=== PATIENT | male | born 1940 | race Caucasian/White ===

== ENCOUNTER 2017-06-05 11:51 | Inpatient (IN) ==
[2017-06-03 16:48] LABS: Appearance,Urine CLEAR; Bacteria,Urine 0 /hpf (0); Bilirubin,Urine NEG (NEG); Color,Urine YELLOW; Glucose,Urine (UA) 50 mg/dL (NEG); Leukocyte Esterase,Urine NEG /uL (NEG); Nitrate,Urine NEG (NEG); Protein,Urine 100 mg/dL (NEG); Specific Gravity,Urine 1.024 (1.000-1.035); Urine Blood NEG mg/dL (<0.03); Urine RBC < 1 /hpf (0-1); Urine Squamous Epithelial Cell 0 /hpf (0-4); Urine WBC 1 /hpf (0-4); Urobilinogen,Urine NEG (NEG)
[2017-06-03 18:45] LABS: Blood Urea Nitrogen 21 mg/dl (8-23)
[2017-06-03 19:20] LABS: Basophils # (Auto) 0.1 K/mcL (0.0-0.3); Basophils % (Auto) 0.7 % (0.0-2.0); Eosinophils # (Auto) 0.3 K/mcL (0.0-0.7); Eosinophils % (Auto) 4.4 % (0.0-7.0); Granulocytes % (Auto) 59.1 % (38.0-78.0); Lymphocytes # (Auto) 1.9 K/mcL (1.5-4.8); Lymphocytes % (Auto) 25.3 % (15.5-49.0); Mean Cell Volume 96.5 fL (80.0-100.0); Mean Corpuscular HGB Conc 32.5 g/dL (31.0-36.0); Mean Corpuscular Hemoglobin 31.4 pg (26.0-34.0); Monocytes # (Auto) 0.8 K/mcL (0.1-0.9); Monocytes % (Auto) 10.5 % (1.0-12.0); Platelet Count 182 K/mcL (140-440); RBC 4.41 M/mcL (4.50-5.90); Red Cell Distribution Width 14.4 % (11.5-14.5)
[~2017-06-05 11:51] MED LIST: CELECOXIB 200 MG CAPSULE PO SCH; IPRATROPIUM/ALBUTEROL 3 ML AMPUL.NEB NEB PRN; KETOROLAC 30 MG, ROPIVACAINE HCL/PF 49.5 ML, EPINEPHrine 0.5 MG, 0.9 % SODIUM CHLORIDE ... IJ ONE; PREGABALIN 75 MG CAPSULE PO SCH; SCOPOLAMINE 1 PATCH PATCH TOPICAL PRN; ceFAZolin 1 GM VIAL IV SCH; oxyCODONE 10 MG TAB.ER.12H PO SCH
[2017-06-05] MEDS ORDERED: KETAMINE 100 MG/ML ML IV ONE (14:05)
[2017-06-05] MEDS ORDERED: ETOMIDATE 20 MG/10 ML VIAL IV ONE (14:05)
[2017-06-05] MEDS ORDERED: PHENYLEPHRINE 10 MG/ML VIAL IV ONE (14:05)
[2017-06-05] MEDS ORDERED: GLYCOPYRROLATE 0.2 MG/ML VIAL IV ONE (14:05)
[2017-06-05] MEDS ORDERED: LIDOCAINE HCL/PF 100 MG/5 ML SYRINGE IV ONE (14:05)
[2017-06-05] MEDS ORDERED: BUPIVACAINE PF 0.5% 30 ML VIAL IJ ONE (14:05)
[2017-06-05] MEDS ORDERED: EPINEPHrine 1 MG/ML AMPUL IJ ONE (14:05)
[2017-06-05] MEDS ORDERED: ONDANSETRON 4 MG/2 ML VIAL IV ONE (14:05)
[2017-06-05] MEDS ORDERED: TRANEXAMIC ACID 1,000 MG/10 ML VIAL IV ONE (14:05)
[2017-06-05] MEDS ORDERED: MEPERIDINE 25 MG/ML SYRINGE IV PRN (15:20)
[2017-06-05] MEDS ORDERED: IPRATROPIUM/ALBUTEROL 3 ML AMPUL.NEB NEB PRN (15:20)
[2017-06-05] MEDS ORDERED: ONDANSETRON 4 MG/2 ML VIAL IV PRN ×2 (15:20→15:52)
[2017-06-05] MEDS ORDERED: METHOCARBAMOL 1,000 MG/10 ML VIAL IV PRN (15:20)
[2017-06-05] MEDS ORDERED: LACTATED RINGERS 1,000 ML IV SCH (15:30)
[2017-06-05] MEDS ORDERED: MAGNESIUM HYDROXIDE 30 ML ORAL.SUSP PO PRN (15:52)
[2017-06-05] MEDS ORDERED: BISACODYL 10 MG SUPP.RECT PR PRN (15:52)
[2017-06-05] MEDS ORDERED: BENZOCAINE/MENTHOL 1 LOZENGE PO PRN (15:52)
[2017-06-05] MEDS ORDERED: POLYETHYLENE GLYCOL 3350 17 GM PACKET PO PRN (15:52)
[2017-06-05] MEDS ORDERED: TRANEXAMIC ACID 1,000 MG/10 ML VIAL IV SCH (15:52)
[2017-06-05] MEDS ORDERED: FLEETS ADULT ENEMA PR PRN (15:52)
--- NOTE | 2017-06-05 15:52 | Brief Operative Note ---
Date of procedure: 06/05/17 Pre-op diagnosis: R knee DJD Post-op diagnosis: same Procedure: Right robotic assisted total knee arthroplasty Grafts/Implants: Yes ([place] Triathlon 6 femur, 5 tibia, 9mm X3 tibial insert, 36 patella) Anesthesia: spinal, GLMA Findings: multicompartment arthritis Complications: none Surgeon: Roque Lee Emergency Manager: Silviano Escobedo Estimated blood loss (cc): 30 Specimens Removed/Pathology: none sent Condition: stable Disposition: PACU
[2017-06-05] MEDS ORDERED: DEXTROSE 31 GM ORAL.SUSP PO PRN (15:58)
[2017-06-05] MEDS ORDERED: DEXTROSE 50% 50 ML VIAL IV PRN (15:58)
--- NOTE | 2017-06-05 17:07 | XRay Report ---
CLINICAL INFORMATION: Post-op total knee. COMPARISON: None. FINDINGS: Total knee prostheses is anatomically aligned. No osseous abnormality. Soft tissue swelling is noted. IMPRESSION: Negative Interpreted and Authenticated by: Thomas Silva 06/05/17
[2017-06-05] MEDS: 0.9 % SODIUM CHLORIDE 1,000 ML IV SCH (17:23)
[2017-06-05] MEDS: INSULIN LISPRO 1 UNIT/0.01 ML UNIT SQ SCH ×2 (17:23→21:45)
[2017-06-05] MEDS: metFORMIN 500 MG TABLET PO SCH (17:23)
[2017-06-05] MEDS: INSULIN, 75/25 NPL/LISPRO 1 UNIT/0.01 ML UNIT SQ SCH (17:50)
[2017-06-05] MEDS ORDERED: ATORVASTATIN 20 MG TABLET PO SCH (21:00)
[2017-06-05] MEDS ORDERED: amLODIPine 5 MG TABLET PO SCH (21:00)
[2017-06-05] MEDS ORDERED: SENNOSIDES 1 TABLET PO SCH (21:00)
[2017-06-05] MEDS: DOCUSATE SODIUM 100 MG CAPSULE PO SCH (21:45)
[2017-06-05] MEDS: LISINOPRIL 20 MG TABLET PO SCH (21:45)
[2017-06-05] MEDS: METOPROLOL TARTRATE 25 MG TABLET PO SCH (21:45)
[2017-06-05] MEDS: ASPIRIN 325 MG ENTERIC COATED TABLET PO SCH (21:45)
[2017-06-05] MEDS: ceFAZolin 1 GM VIAL IV SCH (21:46)
[2017-06-05] MEDS: [UNRECOGNIZED DRUG - OTHER] PO SCH (21:46)
[2017-06-05] MEDS: 0.9 % SODIUM CHLORIDE 10 ML SYRINGE IV SCH (21:49)
[2017-06-06] MEDS: 0.9 % SODIUM CHLORIDE 1,000 ML IV SCH (01:09)
[2017-06-06] MEDS: ceFAZolin 1 GM VIAL IV SCH (04:57)
[2017-06-06] MEDS: 0.9 % SODIUM CHLORIDE 10 ML SYRINGE IV SCH (05:17)
[2017-06-06] MEDS: oxyCODONE/APAP 5/325MG TABLET PO PRN ×2 (05:53→06:53)
[2017-06-06] MEDS: INSULIN LISPRO 1 UNIT/0.01 ML UNIT SQ SCH (07:33)
[2017-06-06] MEDS: INSULIN, 75/25 NPL/LISPRO 1 UNIT/0.01 ML UNIT SQ SCH (07:34)
--- NOTE | 2017-06-06 07:49 | Discharge Summary ---
Providers - Providers Patient information: Note initiated : 06/06/17 at 7:47 am Service Date, if different from initiated Date: [] Patient: Barrett Campos 77 y/o M admitted on 06/05/17 for Arthroplasty, Knee Total Right John. Chief Complaint: [] Discharge date: 06/06/17 Hospitalization Hospital course: Pt was admitted for a TKA. He underwent the procedure the day of admission. He was then transfered to the floor for IV pain meds, IV abx, and PT. He spent one night on the floor prior to being discharged to home. Discharge diagnosis: R knee osteoarthrosis Exam - Exam Clean and dry: Yes Weight bearing status: as tolerated Ortho Discharge - TKA - Patient Instructions Diet: Regular Diet Activity: activity as tolerated Total Knee Protocol: For Total Knee: Start ROM PRABHA with stationary bike or rocking chair. Work on gaining full extension of knee. Posterior dislocation precautions provided. Hip abductor strengthening and gait training instructions provided. Apply Cryocuff as instructed. Dressing Care: May shower in 2 days - Follow Up Plan Disposition: Home, Self-Care Prognosis: Good Rehab Potential: Good Overall status at discharge: patient is progressing back to baseline - Orders For Discharge Prescriptions: Aspirin [Ecotrin] 325 mg PO BID #30 tab.ec oxyCODONE/APAP [Percocet 5-325 mg] 1 - 2 tab PO Q4HP PRN #80 tab PRN Reason: Pain Pending Studies Resuscitation Status Full Code Diet Consistent Carbohydrate Diet Start SatJun 05 Dinner Amlodipine Besylate (Norvasc) 5 mg PO HS [facility] Last Admin: 06/05/17 21:45 Dose: 5 mg Aspirin (Ecotrin) 325 mg PO BID [facility] Last Admin: 06/05/17 21:45 Dose: 325 mg Atorvastatin Calcium (Lipitor) 20 mg PO HS [facility] Last Admin: 06/05/17 21:45 Dose: 20 mg Diagnostic Test (Pha) (Accu-Chek) 1 each FS ACHS [facility] Last Admin: 06/06/17 07:33 Dose: 1 each Admin: 06/05/17 21:44 Dose: 1 each Admin: 06/05/17 17:06 Dose: 1 each Docusate Sodium (Colace) 100 mg PO BID [facility] Last Admin: 06/05/17 21:45 Dose: 100 mg Sodium Chloride (Sodium Chloride 0.9%) 1,000 mls @ 125 mls/hr IV .Q8H [facility] Last Admin: 06/06/17 01:09 Dose: 125 mls/hr Infusion: 06/06/17 01:09 Dose: 0 mls/hr Admin: 06/05/17 17:23 Dose: 125 mls/hr Insulin Human Lispro (Humalog) 0 unit SQ ACHS [facility] PRN Reason: Protocol Last Admin: 06/06/17 07:33 Dose: 2 unit Admin: 06/05/17 21:45 Dose: 2 unit Admin: 06/05/17 17:23 Dose: 4 unit Insulin Lispro Protam/Lispro Human (Humalog 75/25) 65 unit SQ BIDAC [facility] Last Admin: 06/06/17 07:34 Dose: 65 unit Admin: 06/05/17 17:50 Dose: 65 unit Lisinopril (Zestril) 20 mg PO BID [facility] Last Admin: 06/05/17 21:45 Dose: 20 mg Metformin HCl (Glucophage) 500 mg PO BIDCC [facility] Last Admin: 06/05/17 17:23 Dose: 500 mg Metoprolol Tartrate (Lopressor) 25 mg PO BID [facility] Last Admin: 06/05/17 21:45 Dose: 25 mg Oxycodone/Acetaminophen (Percocet 5-325 Mg) 0 tab PO Q4HP PRN PRN Reason: PAIN LEVEL 3-6 Last Admin: 06/06/17 06:53 Dose: 1 tab Admin: 06/06/17 05:53 Dose: 1 tab Colostrum, Bovine [ (Colostrum] 500 Mg) 1 dose PO BID [facility] Last Admin: 06/05/17 21:46 Dose: Not Given Senna (Senokot) 2 tab PO HS [facility] Last Admin: 06/05/17 21:45 Dose: 2 tab Sodium Chloride (Saline Flush) 10 ml IV Q8 [facility] Last Admin: 06/06/17 05:17 Dose: Not Given Admin: 06/05/17 21:49 Dose: Not Given Shift Summary 06/06/17 03:47 Shift Summary by Mónica Medina Patient is doing well. Dressing to right knee has some shadow drainage on the ALEXIS, it as not gotten any bigger so far. Up with SBA and FWW. Ambulated to nurses station and back to room. Alert and oriented. Has not required any pain meds so far, will try to get him some before shift change so its on board for PT. IV to Left hand infusing NS at 125mls/hr. Voiding per urinal but output is sluggish. Last bladder scan a little after 0200 was for 175-200. He voided 175 earlier in the shift with a PVR of 15-25mls. AV boots on. Initialized on 06/06/17 03:47 - END OF NOTE
[2017-06-06] MEDS ORDERED: POTASSIUM CHLORIDE 10 MEQ TABLET PO SCH (08:00)
--- NOTE | 2017-06-06 08:14 | Operative Note ---
DATE OF OPERATION: 06/05/2017 PREOPERATIVE DIAGNOSIS: Right knee severe multi-compartment osteoarthritis. POSTOPERATIVE DIAGNOSIS: Right knee severe multi-compartment osteoarthritis. PROCEDURE PERFORMED: Right robotic-assisted total knee arthroplasty placing a Yessenia triathlon size 6 cruciate retaining femoral component, a size 5 tibial baseplate with a 9 mm X3 tibial insert and a 36 mm patellar button. SURGEON: Roque Lee MD. CHIEF ACCOUNTING OFFICER: Brayan Escobedo PA-C. ANESTHESIA: Spinal plus general. DRAINS: None. SPECIMENS: Bone cuts, which were discarded. BLOOD LOSS: 30 mL POSTOPERATIVE CONDITION: Stable. INDICATIONS FOR SURGERY: This is a 77-year-old male who has had longstanding worsening right knee pain. Radiographs showed severe [id number]-vo-[id number] osteoarthritis. He has had a prior left total knee arthroplasty by me with a good result. FINDINGS AT SURGERY: He did have multiple compartment osteoarthritis. Post implantation showed good limb alignment and stability. PROCEDURE IN DETAIL: The patient had been seen preoperatively and informed consent had been obtained after discussion of risks and benefits of surgery. Risks including, but not limited to, bleeding, possibly requiring transfusion; infection, possibly requiring implant removal and prolonged IV antibiotics; injury to nerves, blood vessels, and other surrounding structures; anesthetic risks; incomplete or no resolution of symptoms; stiffness, pain and swelling, clunking; DVT and pulmonary embolus risks; the possibility of needing further revision surgery. He understood these risks and wished to proceed. Correct operative site was marked and the patient was given spinal anesthesia and was taken to the operating room and LMA general given. The right lower extremity was carefully prepped and draped in normal sterile fashion and a time-out was performed verifying patient name, operative site, and plan. Esmarch was used, securing it the extremity and tourniquet was inflated to 350 mmHg. A midline incision was made with a scalpel through skin and subcutaneous tissue. IrriSept was irrigated and then a medial parapatellar arthrotomy made. Subperiosteal exposure was done of the anterior medial tibia and we then transected the ACL and resected the anterior horns of menisci. Retropatellar fat pad was also excised and then the distal anterior cortex of the femur was exposed subperiosteally. The guide pins were then placed, two in the femur and two in the tibia first making stab incisions and then drilling the pins bicortically and attaching the arrays. We also placed femoral and tibial checkpoints. We went ahead and checked our hip center of rotation as well as medial and lateral malleoli with the Green probe. We did our double check of our femoral and tibial check points. We then used the blue probe to do our mapping of the femur and tibia. We then removed osteophytes with a rongeur. We then checked our gaps with the spoons in flexion and extension. In flexion, we were tight medially and in extension we were tight laterally. We did not feel we should internally rotate the tibia. We went ahead and just placed 4 degrees of varus on the femur to give us 17 mm gaps medially in flexion and extension and laterally in extension, and we had 15 mm laterally in flexion. We went ahead and placed this into the computer and then went ahead and used the robotic arm to do our femoral and tibial bone cuts. We used the green probe to johan our tibial rotation. We trialed placed a 6 trial; however, this had overhang posterolaterally with the appropriate rotation so we downsized to a 5. This was pinned into place. Boss reamer and keel punch were used to prepare and then the keeled tibial trial was impacted. Femur was elevated and a curved osteotome used along with curved curet to remove posterior osteophytes. Femoral component was impacted, pinned and peg holes drilled. We then impacted a 9 trial insert. The knee was taken into extension. We were about 4 degrees short of full extension. We then measured the patella. It measured approximately 25 mm thick. We did a freehand resection. Post-resection was 13 mm thick. We went ahead and sized to a 36 which was medialized maximally and drilled our peg holes. We then placed the patella trial and did a lateral facetectomy. We also checked our thickness and post-resection was 23. We then checked our patellar tracking and it tracked well, so we went ahead and removed trial components while definitive implants were opened. We filled the joint with IrriSept. After a minute we pulse lavaged copiously with saline. Antibiotic cement was mixed. We used a CO2 gun clean and dry the cancellous bone surfaces and then cemented the tibia followed by the femur. Excess cement had been removed and then a 9 trial insert was placed. The knee was taken into extension. We then cemented the patellar button. We then filled the joint with IrriSept and while cement was curing, we injected our pain cocktail into the pericapsular and subcutaneous tissues. We then pulse lavaged copiously with saline and then flexed the knee up and did a final inspection and cement removal. We then injected our pain cocktail after removing the trial in the posterior capsule. IrriSept was irrigated and then the definitive insert was impacted. The checkpoints were removed and then the pins for the arrays were removed. We then pulse lavaged copiously with saline. The knee was placed in about 45 degrees of flexion. #2 FiberWire interrupted [id number] were used around the superior quadrant of the patella, interrupted #1 Vicryl around the inferior quadrant, running #1 Vicryl for patellar tendon and quad tendon. Final IrriSept irrigation and after a minute final pulse lavaged and then 2-0 Monocryl for subcutaneous and lakshmi for skin. Xeroform and sterile dressing were applied. Tourniquet was released. The patient was awakened, extubated, and transferred to recovery in stable condition. [id number] Job ID: [id number] Doc ID: [id number] Roque Lee MD
[2017-06-06] MEDS: DOCUSATE SODIUM 100 MG CAPSULE PO SCH (08:17)
[2017-06-06] MEDS: ASPIRIN 325 MG ENTERIC COATED TABLET PO SCH (08:17)
[2017-06-06] MEDS: LISINOPRIL 20 MG TABLET PO SCH (08:18)
[2017-06-06] MEDS: metFORMIN 500 MG TABLET PO SCH (08:18)
[2017-06-06] MEDS: METOPROLOL TARTRATE 25 MG TABLET PO SCH (08:18)
[2017-06-06] MEDS: [UNRECOGNIZED DRUG - OTHER] PO SCH (08:20)
[2017-06-06] MEDS ORDERED: CETIRIZINE 10 MG TABLET PO SCH (09:00)
[2017-06-06] MEDS ORDERED: FUROSEMIDE 20 MG TABLET PO SCH (09:00)
[2017-06-06] MEDS ORDERED: ALLOPURINOL 300 MG TABLET PO SCH (09:00)
== END 2017-06-06 11:10 | disposition home or self-care (01) | DRG 470 ==
LOC: MEDSUR 11:51
PROVIDERS: ADMIT Orthopaedic Surgery; ATTEND Orthopaedic Surgery

== ENCOUNTER 2017-10-13 09:25 | Inpatient (IN) ==
[2017-10-13] MEDS ORDERED: LACTATED RINGERS 1,000 ML IV ONE ×2 (09:49→11:07)
--- NOTE | 2017-10-13 09:49 | Emergency Department Note ---
Weakness HPI - General Chief complaint: Weakness Stated complaint: alt loc, weakness Time Seen by Provider: 10/13/17 09:41 Source: patient, family Mode of arrival: ambulatory Limitations: no limitations - History of Present Illness HPI Narrative: This patient has been feeling weak and run down for the last day or so. Does have a new diagnosis of metastatic liver cancer with unknown primary. He is also been confused today. Denies headache but does complain of some mild left lower quadrant pain but has no tenderness in that area. Had 2 CAT scans of the abdomen in August at [facility]. Is have a PET scan scheduled. - Related Data Home Medications Medication Instructions Recorded Confirmed Allopurinol [Zyloprim] 600 mg PO DAILY 04/11/15 08/24/17 Enalapril [Vasotec] 40 mg PO BID 04/11/15 08/24/17 Pravastatin [Pravachol] 80 mg PO HS 04/11/15 08/24/17 Cetirizine [Zyrtec] 10 mg PO DAILY 07/20/15 08/24/17 Colostrum, Bovine [Colostrum] 500 mg PO BID 07/20/15 08/24/17 Potassium Chloride [Kdur] 10 meq PO QAMCC 07/20/15 08/24/17 metFORMIN [Glucophage] 500 mg PO BIDCC 07/20/15 08/24/17 Insulin 70/30, Human [Novolin 65 unit SQ BIDAC 09/26/15 08/24/17 70/30] Aspirin [[place] Aspirin] 81 mg PO HS 06/03/17 08/24/17 Furosemide [Lasix] 20 mg PO DAILY 06/03/17 08/24/17 Metoprolol Tartrate [Lopressor] 25 mg PO BID 06/03/17 08/24/17 amLODIPine [Norvasc] 5 mg PO HS 06/03/17 08/24/17 Blood-Glucose Meter [Relion 1 each MC 10/13/17 All-in-One] risperiDONE [Risperidone] 1 mg PO 10/13/17 10/13/17 Allergies Allergy/AdvReac Type Severity Reaction Status Date / Time propofol [PROPOFOL] Allergy Intermediate Hives Verified 06/03/17 14:22 Review of Systems All systems ED: reviewed and negative except as stated. Past Medical History - Past Medical History Medical history: Reports: arthritis, asthma, cancer, coronary artery disease, DM , hyperlipidemia, hypertension, kidney stones, peripheral artery disease Surgical history ED: Reports: angioplasty/stent, cholecystectomy, pacemaker/AICD - Social History smoking status: Never smoker Physical Exam Limitations: no limitations General appearance: alert Head: atraumatic Eye: Present: normal appearance ENT: mucous membranes dry Neck: Present: normal inspection Chest: Present: normal inspection Respiratory: Present: normal lung sounds bilaterally Cardiovascular: Present: regular rate, normal rhythm, normal heart sounds Abdominal: Present: soft. Absent: distention, tenderness Neurological: Present: alert Psychiatric: Present: normal affect, normal mood Skin: Present: warm, dry, intact Course Vital Signs Temperature 96.0 F L 10/13/17 09:26 Pulse Rate 76 10/13/17 09:26 Respiratory Rate 20 10/13/17 09:26 Blood Pressure 125/63 10/13/17 09:26 Pulse Oximetry (%) 94 10/13/17 09:26 Temperature 99.8 F H 10/13/17 11:03 Pulse Rate 63 10/13/17 11:31 Respiratory Rate 20 10/13/17 11:31 Blood Pressure 113/58 10/13/17 11:31 Pulse Oximetry (%) 92 10/13/17 11:31 Weakness - MDM Narrative Medical decision making narrative: This patient probably has pneumonia on his x-ray although is larger read. His lactic acid is 6.80 most likely is also septic. Jose did blood cultures and started Rocephin and Levaquin. He will be admitted to the ICU by Dr. Bowie. - Lab Data Lab results reviewed: Yes I reviewed the patient's lab results. Result diagrams: 10/13/17 09:45 10/13/17 09:45 Lab Results 10/13/17 10/13/17 10/13/17 Range/Units 09:45 09:45 09:45 WBC 13.1 H (4.5-11.0) K/mcL RBC 3.81 L (4.50-5.90) M/mcL Hgb 11.3 L (13.5-16.5) g/dL Hct 34.9 L (41.0-55.0) % MCV 91.7 (80.0-100.0) fL MCH 29.8 (26.0-34.0) pg MCHC 32.5 (31.0-36.0) g/dL RDW 17.4 H (11.5-14.5) % Plt Count 200 (140-440) K/mcL MPV 8.8 (7.4-10.4) fL Total Counted 100 Seg Neutrophils % 75 (38-78) % Band Neutrophils % 11 H (0-10) % Lymphocytes % 9 L (15-49) % Monocytes % (Manual) 5 (1-12) % Platelet Estimate Normal (NORMAL) RBC Morphology Abnorm A (NORMAL) Anisocytosis 1+ A (NONE SEEN) VBG Lactic Acid 6.8 H* (0.5-2.2) mmol/L Sodium 138 (133-145) mmol/L Potassium 3.7 (3.3-5.1) mmol/L Chloride 96 (96-108) mmol/L Carbon Dioxide 21 L (22-30) mmol/L Anion Gap 21.0 H (8-16) BUN 19 (8-23) mg/dl Creatinine 1.5 H (0.7-1.2) mg/dl GFR Calculation 45 Glucose 249 H (70-105) mg/dL Calcium 9.1 (8.6-10.4) mg/dl Total Bilirubin 6.4 H (0.0-1.0) mg/dL AST 172 H (0-37) U/l ALT 60 H (0-40) U/l Alkaline Phosphatase 535 H (39-117) U/L Troponin T (0-0.03) ng/ml NT-Pro-B Natriuret Pep (0-450) pg/ml Total Protein 6.8 (5.9-8.4) gm/dL Albumin 2.7 L (3.2-5.2) gm/dL Globulin 4.1 H (2.2-3.7) gm/dL Albumin/Globulin Ratio 0.7 L (1.0-2.3) 10/13/17 10/13/17 Range/Units 09:45 09:45 WBC (4.5-11.0) K/mcL RBC (4.50-5.90) M/mcL Hgb (13.5-16.5) g/dL Hct (41.0-55.0) % MCV (80.0-100.0) fL MCH (26.0-34.0) pg MCHC (31.0-36.0) g/dL RDW (11.5-14.5) % Plt Count (140-440) K/mcL MPV (7.4-10.4) fL Total Counted Seg Neutrophils % (38-78) % Band Neutrophils % (0-10) % Lymphocytes % (15-49) % Monocytes % (Manual) (1-12) % Platelet Estimate (NORMAL) RBC Morphology (NORMAL) Anisocytosis (NONE SEEN) VBG Lactic Acid (0.5-2.2) mmol/L Sodium (133-145) mmol/L Potassium (3.3-5.1) mmol/L Chloride (96-108) mmol/L Carbon Dioxide (22-30) mmol/L Anion Gap (8-16) BUN (8-23) mg/dl Creatinine (0.7-1.2) mg/dl GFR Calculation Glucose (70-105) mg/dL Calcium (8.6-10.4) mg/dl Total Bilirubin (0.0-1.0) mg/dL AST (0-37) U/l ALT (0-40) U/l Alkaline Phosphatase (39-117) U/L Troponin T < 0.01 (0-0.03) ng/ml NT-Pro-B Natriuret Pep 1472.0 H (0-450) pg/ml Total Protein (5.9-8.4) gm/dL Albumin (3.2-5.2) gm/dL Globulin (2.2-3.7) gm/dL Albumin/Globulin Ratio (1.0-2.3) - Radiology Data Radiology results reviewed: Yes I reviewed the patient's radiology results. Disposition Pt seen by PERSONNEL RECORDS CLERK/PA only: No Clinical Impression: Sepsis, Pneumonia Disposition: Xfer As Inpt ([facility]) Condition: Fair Referrals: Cary Wells ARNP [Primary Care Provider] - Time of Disposition: 11:56
[2017-10-13 10:29] LABS: Mean Cell Volume 91.7 fL (80.0-100.0); Mean Corpuscular HGB Conc 32.5 g/dL (31.0-36.0); Mean Corpuscular Hemoglobin 29.8 pg (26.0-34.0); Platelet Count 200 K/mcL (140-440); RBC 3.81 M/mcL (4.50-5.90); Red Cell Distribution Width 17.4 % (11.5-14.5)
[2017-10-13] MEDS ORDERED: cefTRIAXone 1 GM VIAL IV ONE (10:39)
[2017-10-13] MEDS ORDERED: LEVOFLOXACIN 750 MG/150 ML BAG IV ONE (10:39)
[2017-10-13] MEDS ORDERED: 0.9 % SODIUM CHLORIDE 1,000 ML IV ONE ×2 (10:43→12:30)
[2017-10-13 10:56] LABS: Anisocytosis 1+ (NONE SEEN); Band Neutrophils % 11 % (0-10); Lymphocytes % 9 % (15-49); Monocytes % (Manual) 5 % (1-12); Platelet Estimate NORMAL (NORMAL); RBC Morphology ABNORM (NORMAL); Segmented Neutrophils % 75 % (38-78)
[2017-10-13 10:57] LABS: ALT/SGPT 60 U/l (0-40); Albumin 2.7 gm/dL (3.2-5.2); Albumin/Globulin Ratio 0.7 (1.0-2.3); Alkaline Phosphatase 535 U/L (39-117); Blood Urea Nitrogen 19 mg/dl (8-23)
[2017-10-13] MEDS ORDERED: DEXTROSE 31 GM ORAL.SUSP PO PRN (14:09)
[2017-10-13] MEDS ORDERED: ONDANSETRON ODT 4 MG TABLET SL PRN (14:09)
[2017-10-13] MEDS ORDERED: DEXTROSE 50% 50 ML VIAL IV PRN (14:09)
[2017-10-13] MEDS: 0.9 % SODIUM CHLORIDE 10 ML SYRINGE IV SCH ×2 (14:20→21:15)
[2017-10-13 14:56] LABS: Appearance,Urine HAZY; Bacteria,Urine FEW /hpf (0); Color,Urine AMBER; Glucose,Urine (UA) 50 mg/dL (NEG); Ictotest,Urine POS (NEG); Leukocyte Esterase,Urine NEG /uL (NEG); Mucus,Urine MANY /hpf (0); Protein,Urine 100 mg/dL (NEG); Specific Gravity,Urine 1.017 (1.000-1.035); Urine Blood >=1.0 mg/dL (<0.03); Urine Hyaline Cast 9 /lpf (0-2); Urine RBC 134 /hpf (0-1); Urine Squamous Epithelial Cell < 1 /hpf (0-4); Urine WBC 10 /hpf (0-4)
[2017-10-13] MEDS: PIPERACILLIN SODIUM/TAZOBACTAM 3.375 GM in DEXTROSE 5% IN WATER 50 ML IV SCH ×3 (16:00→23:46)
--- NOTE | 2017-10-13 16:24 | XRay Report ---
CLINICAL INFORMATION: Shortness of breath COMPARISON: 07/20/2015 FINDINGS: The heart is mildly enlarged but unchanged. Pacemaker leads in satisfactory position. Mediastinum is unremarkable. Equivocal redistribution of the upper lobe pulmonary vasculature are noted, but no edema. Moderate sized infiltrates developing left lower lobe with small left pleural effusion. Small right pleural effusion also developing IMPRESSION: Moderate infiltrate left lower lobe, likely pneumonia, with small effusion. Interpreted and Authenticated by: Thomas Silva 10/13/17
--- NOTE | 2017-10-13 16:31 | Cat Scan Report ---
CLINICAL INFORMATION: Confusion history of metastatic disease to liver COMPARISON: None. TECHNIQUE: 2.5 mm helical slices were obtained in the skull base to vertex. Following reconstruction, axial reformatted images were reviewed at bone and parenchymal windows. The exam was performed using radiation dose optimization techniques including, but not limited to, automated exposure control, adjustment of the mA and/or kV according to patient size and use of iterative reconstruction technique. FINDINGS: The ventricles, sulci, fissures, and cisterns are symmetrically enlarged bowel mild age-related atrophy - no extra-axial fluid collection or mass appreciated. Minimal chronic ischemic changes in deep cerebral white matter expected for age. A few remote lacunar infarcts in the basal ganglia deep cerebral white matter noted No evidence of metastatic disease on this noncontrast study. No hemorrhage, edema or mass effect. Bone windows show no osseous abnormality. IMPRESSION: Mild atrophy and chronic ischemic changes in the cerebral white matter - expected for age.. Interpreted and Authenticated by: Thomas Silva 10/13/17
[2017-10-13 16:36] LABS: Hemoglobin A1C 9.1 % HGB (4.0-6.0)
[2017-10-13] MEDS ORDERED: ENOXAPARIN 40 MG/0.4 ML SYRINGE SQ ONE (16:54)
[2017-10-13] MEDS: INSULIN LISPRO 1 UNIT/0.01 ML UNIT SQ SCH ×2 (17:26→21:14)
[2017-10-13 18:02] LABS: Blood Urea Nitrogen 22 mg/dl (8-23)
[2017-10-13] MEDS: 0.9 % SODIUM CHLORIDE 1,000 ML IV SCH ×2 (18:48→23:51)
--- NOTE | 2017-10-13 19:57 | Internal Med History&Physical ---
Medical - H&P: HPI Patient information: Note initiated : 10/13/17 at 7:53 pm Service Date, if different from initiated Date: [] Patient: Barrett Campos 77 y/o M admitted on 10/13/17 for alt loc, weakness. Chief Complaint: weakness, confusion History of present illness: The patient is a 77-year-old male with history of coronary artery disease, hyperlipidemia, hypertension, recently diagnosed carcinoma of unknown primary who presents with weakness and confusion. History is obtained in speaking with the patient, the patient's as well as some limited old records are obtained from [facility]. Patient was in his usual state of health up until just today. His noted he did not "seem himself", was a bit disoriented. She checked his blood glucose which was not low. She also noted that he been incontinent of urine over the night. Ottoman to shower, she had to assist him into the shower, he had to sit during the shower because of weakness, which are new findings for him. He has of these ongoing symptoms, she brings in the ED for evaluation. Patient has been coughing for about the last 2 weeks. Apparently was on a course of amoxicillin for sinus problems, the patient denies any sinus congestion, states he was just coughing. Occasionally is having some phlegm that he would swallow. Cough may have gotten worse in the last few days. His notes he may have been more short of breath last few days, and last evening they noted he had chills including chattering of his teeth. His temperature at arrival was 99.6. This morning also had some lateral left abdominal pain, 4-5/10 in intensity, resolved after ibuprofen. No associated nausea or vomiting, no diarrhea. No sore throat, no sinus congestion, no face pressure, no rhinorrhea. No myalgias or body aches. He has noted some changes in his bowel habits last few months, he has been constipated, when he used to be fairly regular. Patient was in this emergency department in early August for kidney stone, was noted to have an elevated bilirubin in the 3 range, as well as elevated transaminases and alkaline phosphatase. Subsequent CT of the abdomen at [facility] revealed masses in the nabeel hepatis, felt to be lymph nodes. He subsequently underwent needle biopsy on September 23. That was confirmed his cancer his states, but type is unknown. He's been seen by an oncologist in [place]. The next step of the workup was to do a CT of the head, and a PET scan and to consider an endoscopy. The CT reports initially were concerning for portal vein thrombosis, though in subsequent CT there is no evidence of portal vein thrombosis with a contrast study. No mention of any hepatic masses , only some early nodular contours of the liver concerning for early cirrhosis. In the emergency department, he was to, had a white count of 13,000, low-grade fever 99.8 and an elevated lactate at 6.8. Chest radiograph shows some vague left lower lobe infiltrate, he's been admitted for sepsis from presumed pulmonary source. 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 The patient' s mother had colon cancer and diabetes. Another brother had colon cancer, status post colectomy. Sister had cancer, another sister had breast cancer. Social history: The patient is retired, lives with his . He does not smoke. Does not drink alcohol. Medical - H&P: Meds Home Medications Medication Instructions Recorded Confirmed Type Allopurinol [Zyloprim] 600 mg PO DAILY 04/11/15 10/13/17 History Enalapril [Vasotec] 40 mg PO BID 04/11/15 10/13/17 History Potassium Chloride [Kdur] 10 meq PO [facility] 07/20/15 10/13/17 History Insulin 70/30, Human [Novolin 65 unit SQ BIDAC 09/26/15 10/13/17 History 70/30] Aspirin [Avery Aspirin] 81 mg PO DAILY 06/03/17 10/13/17 History Furosemide [Lasix] 20 mg PO DAILY 06/03/17 10/13/17 History Metoprolol Tartrate [Lopressor] 25 mg PO DAILY 06/03/17 10/13/17 History amLODIPine [Norvasc] 5 mg PO HS 06/03/17 10/13/17 History Blood-Glucose Meter [Relion 1 each [facility] BIDAC 10/13/17 10/13/17 History All-in-One] risperiDONE [Risperidone] 1 tab PO HS 10/13/17 10/13/17 History Allergies Allergy/AdvReac Type Severity Reaction Status Date / Time propofol [PROPOFOL] Allergy Intermediate Hives Verified 06/03/17 14:22 Medical - H&P: Exam - Constitutional Vitals: Temp Pulse Resp BP Pulse Ox 97.6 F 75 16 119/58 98 10/13/17 18:28 10/13/17 17:49 10/13/17 18:28 10/13/17 18:28 10/13/17 19:10 GENERAL: Alert, thoug hseems a bit blunted; oriented, in no acute distress. Cooperative, appears stated age. HEENT: Atraumatic. PERRL, conjunctiva clear, scleral icterus present. Hearing grossly intact. Oropharynx with dry mucous membranes, no lip or gum lesions, no pharyngeal erythema or exudate. Tongue midline, palate rises symmetrically. NECK: Supple, thick without meningismus, no thyromegaly RESPIRATORY: Some rales in the left base, otherwise clear without wheezes. Respiratory effort is unlabored. CARDIOVASCULAR: Regular rate and rhythm, no murmur gallop or rub appreciated though heart tones are bit distant. Trace peripheral edema. Carotid pulses 2+ without bruit. GI: Abdomen obese, soft, nontender, no guarding or rebound. Bowel sounds are present. Hepatosplenomegaly could not be determined due to body habitus. LYMPHATIC: No cervical or supraclavicular lymphadenopathy appreciated MUSCULOSKELETAL: No joint erythema or swelling, normal range of motion. Muscle mass normal for age. Strength 5-/5 in the upper and lower extremities with generalized weakness. SKIN: Intact, warm, dry. Skin turgor normal. NEUROLOGIC: Cranial nerves II through XII grossly intact. Deep tendon reflexes 1+ at the biceps and patella. Sensation intact to light touch bilaterally. PSYCHIATRIC: Alert, responses very mildly slowed, oriented x3, normal affect, normal insight. Medical - H&P: Reslt - Labs CBC & Chem 7: 10/13/17 09:45 10/13/17 17:02 Labs: Short CBC 10/13/17 Range/Units 09:45 WBC 13.1 H (4.5-11.0) K/mcL Hgb 11.3 L (13.5-16.5) g/dL Hct 34.9 L (41.0-55.0) % Plt Count 200 (140-440) K/mcL BMP 10/13/17 10/13/17 09:45 17:02 Sodium 138 137 Potassium 3.7 3.7 Chloride 96 99 Carbon Dioxide 21 L 25 BUN 19 22 Creatinine 1.5 H 1.3 H Glucose 249 H 235 H Calcium 9.1 8.6 Cardiac Enzymes 10/13/17 Range/Units 09:45 Troponin T < 0.01 (0-0.03) ng/ml Liver Function 10/13/17 Range/Units 09:45 Total Bilirubin 6.4 H (0.0-1.0) mg/dL AST 172 H (0-37) U/l ALT 60 H (0-40) U/l Alkaline Phosphatase 535 H (39-117) U/L Albumin 2.7 L (3.2-5.2) gm/dL Urine 10/13/17 Range/Units 13:55 Urine Color Nidia Urine Appearance Hazy Urine pH 5.0 (5.0-9.0) Ur Specific Max 1.017 (1.000-1.035) Urine Protein 100 A (NEG) mg/dL Urine Glucose (UA) 50 A (NEG) mg/dL - EKG Data -: EKG Reviewed by Myself (V-paced) - Imaging and Cardiology Chest x-ray Status: image reviewed by me Additional comments: FINDINGS: The heart is mildly enlarged but unchanged. Pacemaker leads in satisfactory position. Mediastinum is unremarkable. Equivocal redistribution of the upper lobe pulmonary vasculature are noted, but no edema. Moderate sized infiltrates developing left lower lobe with small left pleural effusion. Small right pleural effusion also developing IMPRESSION: Moderate infiltrate left lower lobe, likely pneumonia, with small effusion. Medical - H&P: A/P (1) Sepsis Current visit: Yes Status: Acute (2) Pneumonia Current visit: Yes Status: Acute (3) Acute renal failure Current visit: Yes Status: Acute (4) Type 2 diabetes mellitus Current visit: Yes Status: Acute (5) Hypertension Current visit: Yes Status: Acute (6) Abnormal liver enzymes Current visit: Yes Status: Acute - Narrative A/P Narrative: 77-year-old male presents diagnosed carcinoma no primary, presents with malaise , mild disorientation confusion, found to have elevated lactate, leukocytosis, tachypnea, left lower lobe infiltrate consistent with sepsis from pneumonia. Sepsis, severe sepsis with lactate 6.8 he had source appears to be pulmonary, has a left lower lobe infiltrate. No other source identified. Hemodynamically , maintaining adequate blood pressure. Cultures have been obtained in the emergency department. Initially received levofloxacin. Plan: Inpatient admission, Zosyn for broad-spectrum gram-positive and gram- negative, continue fluid resuscitation, trend lactate, follow-up cultures. Pneumonia. Left lower lobe infiltrate on radiograph. Has had ongoing pulmonary symptoms for a few weeks, had shaking chills at home. Suspect this is source of sepsis. Plan: Antibiotics as above, follow cultures. Acute renal failure. Baseline creatinine 1.0, now 1.5. Suspect sepsis is the source of his renal failure. Plan: Trend creatinine with fluid resuscitation. Hypertension. For now patient's maintaining adequate blood pressure. Plan: Will not reorder antihypertensives until sepsis has cleared or blood pressure became significantly elevated. Type 2 diabetes mellitus, insulin requiring. Plan: Change 70/30 over to Lantus, sliding scale insulin, controlled carbohydrate diet. Check hemoglobin A1c. Abnormal liver enzymes with history of metastatic carcinoma in the nabeel hepatis. CT reports from [facility] reviewed. No discrete hepatic masses are noted. The only abnormality is a nodular contour of the liver with mass in the nabeel hepatis. Unclear if this is driving his abnormal liver enzymes. His bilirubin is increased from 3 range to 6 since early August. His tells me that he had blood drawn last and that his bilirubin was not a concern ( I suspect it was elevated but stable, not normal). His INR is mildly elevated at 1.4. I do not think his presentation represents liver failure but rather sepsis given his infiltrate pulmonary symptoms and white count. Plan: Trend liver enzymes, temp to obtain records from his oncologist. CODE STATUS is discussed with the patient and his at bedside. CODE STATUS is DO NOT RESUSCITATE. Prophylaxis: Subcutaneous heparin for DVT prophylaxis. Medical - H&P: Qual - VTE Deep Vein Thrombosis/Pulmonary Embolism Present on Admission: No
[2017-10-13] MEDS ORDERED: INSULIN GLARGINE, HUMAN 1 UNIT/0.01 ML SQ ONE (21:52)
[2017-10-13] MEDS: INSULIN GLARGINE, HUMAN 1 UNIT/0.01 ML SQ SCH (21:59)
[2017-10-13] MEDS: risperiDONE 1 MG TABLET PO SCH (22:02)
[2017-10-14 05:08] LABS: Mean Cell Volume 91.2 fL (80.0-100.0); Mean Corpuscular HGB Conc 33.8 g/dL (31.0-36.0); Mean Corpuscular Hemoglobin 30.8 pg (26.0-34.0); Platelet Count 144 K/mcL (140-440); RBC 3.32 M/mcL (4.50-5.90); Red Cell Distribution Width 16.9 % (11.5-14.5)
[2017-10-14 05:19] LABS: ALT/SGPT 47 U/l (0-40); Albumin 2.6 gm/dL (3.2-5.2); Albumin/Globulin Ratio 0.8 (1.0-2.3); Alkaline Phosphatase 390 U/L (39-117); Bilirubin,Direct 4.9 mg/dL (0.0-0.3); Blood Urea Nitrogen 25 mg/dl (8-23); Gamma Glutamyl Transpeptidase 260 U/L (8-61); Uric Acid 2.4 mg/dL (2.5-8.0)
[2017-10-14] MEDS: 0.9 % SODIUM CHLORIDE 10 ML SYRINGE IV SCH ×3 (05:36→21:23)
[2017-10-14] MEDS: PIPERACILLIN SODIUM/TAZOBACTAM 3.375 GM in DEXTROSE 5% IN WATER 50 ML IV SCH ×2 (05:36→13:48)
[2017-10-14 06:24] LABS: Anisocytosis 1+ (NONE SEEN); Band Neutrophils % 15 % (0-10); Eosinophils % (Manual) 1 % (0-7); Lymphocytes % 9 % (15-49); Monocytes % (Manual) 4 % (1-12); Platelet Estimate NORMAL (NORMAL); RBC Morphology ABNORMAL (NORMAL); Segmented Neutrophils % 70 % (38-78); Toxic Granulation FEW (NONE SEEN)
[2017-10-14] MEDS: PANTOPRAZOLE 40 MG TABLET PO SCH (07:24)
[2017-10-14] MEDS: INSULIN LISPRO 1 UNIT/0.01 ML UNIT SQ SCH ×4 (07:56→21:22)
[2017-10-14] MEDS: 0.9 % SODIUM CHLORIDE 1,000 ML IV SCH ×3 (07:57→18:59)
[2017-10-14] MEDS ORDERED: POTASSIUM PHOSPHATE 40 MEQ in DEXTROSE 5% IN WATER 500 ML IV ONE (08:00)
[2017-10-14] MEDS: ENOXAPARIN 40 MG/0.4 ML SYRINGE SQ SCH (08:20)
[2017-10-14] MEDS: METOPROLOL TARTRATE 25 MG TABLET PO SCH (08:20)
[2017-10-14] MEDS: ALLOPURINOL 300 MG TABLET PO SCH (08:20)
[2017-10-14] MEDS: MAGNESIUM SULFATE 2 GM/50 ML BAG IV SCH (08:21)
[2017-10-14] MEDS ORDERED: CIPROFLOXACIN 400 MG/200 ML BAG IV SCH (09:00)
[2017-10-14] MEDS ORDERED: IOPAMIDOL 100 ML BOTTLE IV ONE (10:20)
[2017-10-14] MEDS: CIPROFLOXACIN 400 MG/200 ML BAG IV SCH ×2 (10:54→21:22)
--- NOTE | 2017-10-14 12:49 | Internal Med Progress Note ---
Medical - PN: Subj Patient information: Note initiated : 10/14/17 at 12:45 pm Service Date, if different from initiated Date: [] Patient: Barrett Campos 77 y/o M admitted on 10/13/17 for Altered LOC, Weakness/ Sepsis, Pneumonia. Chief Complaint: f/u sepsis Interval history: 10/13 The patient is a 77-year-old male with history of coronary artery disease, hyperlipidemia, hypertension, recently diagnosed carcinoma of unknown primary who presents with weakness and confusion. History is obtained in speaking with the patient, the patient's as well as some limited old records are obtained from [facility]. Patient was in his usual state of health up until just today. His noted he did not "seem himself", was a bit disoriented. She checked his blood glucose which was not low. She also noted that he been incontinent of urine over the night. Ottoman to shower, she had to assist him into the shower, he had to sit during the shower because of weakness, which are new findings for him. He has of these ongoing symptoms, she brings in the ED for evaluation. Patient has been coughing for about the last 2 weeks. Apparently was on a course of amoxicillin for sinus problems, the patient denies any sinus congestion, states he was just coughing. Occasionally is having some phlegm that he would swallow. Cough may have gotten worse in the last few days. His notes he may have been more short of breath last few days, and last evening they noted he had chills including chattering of his teeth. His temperature at arrival was 99.6. This morning also had some lateral left abdominal pain, 4-5/10 in intensity, resolved after ibuprofen. No associated nausea or vomiting, no diarrhea. No sore throat, no sinus congestion, no face pressure, no rhinorrhea. No myalgias or body aches. He has noted some changes in his bowel habits last few months, he has been constipated, when he used to be fairly regular. Patient was in this emergency department in early August for kidney stone, was noted to have an elevated bilirubin in the 3 range, as well as elevated transaminases and alkaline phosphatase. Subsequent CT of the abdomen at [facility] revealed masses in the davidson hepatis, felt to be lymph nodes. He subsequently underwent needle biopsy on Mellissa 2. That was confirmed his cancer his states, but type is unknown. He's been seen by an oncologist in [place]. The next step of the workup was to do a CT of the head, and a PET scan and to consider an endoscopy. The CT reports initially were concerning for portal vein thrombosis, though in subsequent CT there is no evidence of portal vein thrombosis with a contrast study. No mention of any hepatic masses , only some early nodular contours of the liver concerning for early cirrhosis. In the emergency department, he was to, had a white count of 13,000, low-grade fever 99.8 and an elevated lactate at 6.8. Chest radiograph shows some vague left lower lobe infiltrate, he's been admitted for sepsis from presumed pulmonary source. 10/14 The patient feels a bit better this morning. Still kind of fatigued. No abdominal pain. No nausea or vomiting. Dyspnea seems to be improved. Further history is obtained, oncology notes from Dr. Sanches, at [facility] saw the patient on 10/10. 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 Significant labs from that visit included an alpha- fetoprotein of 16,378 and CA 199 of182. On 419 his total bilirubin is 1.6, ALT 20, AST 57, alkaline phosphatase 395. This morning his bilirubin has increased to 6.9, though his transaminases have decreased mildly. Overnight his blood cultures are positive for 2 bottles of gram-negative rods, initial molecular probe report is Enterobacter species. Given these findings, biliary or GI source is of concern. Patient also has pyuria and bacteriuria, UTI may be a source as well. CT of the abdomen and pelvis as well as chest is obtained. There are davidson hepatis masses, no dilation of the biliary duct, no evidence of abscess at the biopsy site or elsewhere. There is some free ascites. Images were reviewed and the case discussed with Dr. Scott. I discussed the case with Dr. Hopkins, on-call for gastroenterology. At this time without definitive evidence of ductal dilatation, recommend continuing with broad antibiotic coverage and follow, rather than proceeding with ERCP at this point. Incidentally, the CT of chest showed now masses and no pneumonia. - Constitutional Vitals: Vital Signs Temp Pulse Resp BP Pulse Ox 99.2 F H 75 20 113/61 96 10/14/17 11:39 04/23/18 11:39 10/14/17 11:39 10/14/17 11:39 10/14/17 11:39 Period Temp Pulse Resp BP Sys/Acosta Pulse Ox Last 24 Hr 97.6 F-99.7 F 63-75 12-20 113-135/54-79 95-98 Intake and Output 10/13/17 10/14/17 10/14/17 21:59 05:59 13:59 Intake Total 976 / 976 1347 / 1347 300 / 300 Output Total 275 / 275 125 / 125 Balance 701 / 701 1222 / 1222 300 / 300 Weight 333 lb 4.8 oz General: Ill appearing Chest: Clear, no rales, unlabored CV: RRR, 1+ edema Abd: Obese, soft, non-tender, no RUQ tenderness, no g/r Neuro: Alert, Oriented, responses not blunted or slowed as yesterday Intake & Output: Intake & Output 10/13/17 10/14/17 10/14/17 21:59 05:59 13:59 Intake Total 976 / 976 1347 / 1347 300 / 300 Output Total 275 / 275 125 / 125 Balance 701 / 701 1222 / 1222 300 / 300 Weight 333 lb 4.8 oz Intake: IV 496 / 496 987 / 987 300 / 300 Sodium Chloride 0.9% 1,000 ml @ 396 / 396 333 / 333 100 mls/hr IV .Q10H [facility] Rx#: [id number] Zosyn 3.375 gm In Dextrose 5% 100 / 100 50 / 50 50 / 50 in Water 50 ml @ 100 mls/hr IV Q6H [facility] Rx#:[id number] Oral 480 / 480 360 / 360 Output: Void Amount 275 / 275 125 / 125 # of times incontinent of urine 0 / 0 Other: Meal Dinner Percent of Meal Consumed 50% Feeding Ability Independent # Voids 1 Medical - PN: Obj Da - Labs CBC & Chem 7: 10/14/17 04:00 10/14/17 04:00 Labs: Abnormal Lab Results 10/14/17 10/14/17 10/13/17 04:00 04:00 17:02 WBC RBC 3.32 L Hgb 10.2 L Hct 30.2 L RDW 16.9 H Band Neutrophils % 15 H Lymphocytes % 9 L Toxic Granulation Few A RBC Morphology Anisocytosis 1+ A PT INR APTT VBG Lactic Acid 2.3 H Carbon Dioxide Anion Gap BUN 25 H Creatinine 1.3 H Glucose 182 H Hemoglobin A1c Uric Acid 2.4 L Phosphorus 2.2 L Total Bilirubin 6.9 H Direct Bilirubin 4.9 H GGT 260 H AST 109 H ALT 47 H Alkaline Phosphatase 390 H NT-Pro-B Natriuret Pep Albumin 2.6 L Globulin Albumin/Globulin Ratio 0.8 L Urine Protein Urine Glucose (UA) Urine Occult Blood Urine Bilirubin Urine Ictotest Urine Urobilinogen Urine RBC Urine WBC Urine Bacteria Hyaline Casts Urine Mucus 10/13/17 10/13/17 10/13/17 17:02 14:22 14:22 WBC RBC Hgb Hct RDW Band Neutrophils % Lymphocytes % Toxic Granulation RBC Morphology Anisocytosis PT 16.8 H INR 1.4 H APTT 38 H VBG Lactic Acid Carbon Dioxide Anion Gap BUN Creatinine 1.3 H Glucose 235 H Hemoglobin A1c 9.1 H Uric Acid Phosphorus Total Bilirubin Direct Bilirubin GGT AST ALT Alkaline Phosphatase NT-Pro-B Natriuret Pep Albumin Globulin Albumin/Globulin Ratio Urine Protein Urine Glucose (UA) Urine Occult Blood Urine Bilirubin Urine Ictotest Urine Urobilinogen Urine RBC Urine WBC Urine Bacteria Hyaline Casts Urine Mucus 10/13/17 10/13/17 10/13/17 13:55 13:05 09:45 WBC RBC Hgb Hct RDW Band Neutrophils % Lymphocytes % Toxic Granulation RBC Morphology Anisocytosis PT INR APTT VBG Lactic Acid 3.7 H Carbon Dioxide Anion Gap BUN Creatinine Glucose Hemoglobin A1c Uric Acid Phosphorus Total Bilirubin Direct Bilirubin GGT AST ALT Alkaline Phosphatase NT-Pro-B Natriuret Pep 1472.0 H Albumin Globulin Albumin/Globulin Ratio Urine Protein 100 A Urine Glucose (UA) 50 A Urine Occult Blood >=1.0 A Urine Bilirubin 2.0 A Urine Ictotest Pos A Urine Urobilinogen 4.0 A Urine RBC 134 H Urine WBC 10 H Urine Bacteria Few A Hyaline Casts 9 H Urine Mucus Many A 10/13/17 10/13/17 10/13/17 09:45 09:45 09:45 WBC 13.1 H RBC 3.81 L Hgb 11.3 L Hct 34.9 L RDW 17.4 H Band Neutrophils % 11 H Lymphocytes % 9 L Toxic Granulation RBC Morphology Abnorm A Anisocytosis 1+ A PT INR APTT VBG Lactic Acid 6.8 H* Carbon Dioxide 21 L Anion Gap 21.0 H BUN Creatinine 1.5 H Glucose 249 H Hemoglobin A1c Uric Acid Phosphorus Total Bilirubin 6.4 H Direct Bilirubin GGT AST 172 H ALT 60 H Alkaline Phosphatase 535 H NT-Pro-B Natriuret Pep Albumin 2.7 L Globulin 4.1 H Albumin/Globulin Ratio 0.7 L Urine Protein Urine Glucose (UA) Urine Occult Blood Urine Bilirubin Urine Ictotest Urine Urobilinogen Urine RBC Urine WBC Urine Bacteria Hyaline Casts Urine Mucus Microbiology 10/13/17 10:51 Blood Culture - Preliminary Blood 10/13/17 10:45 Blood Culture - Preliminary Blood Gram negative bacillus 10/13/17 14:27 MRSA (PCR) - Final Nose - Both Right and Left Meds: Medications Allopurinol (Zylopriim) 600 mg PO DAILY [facility] Last Admin: 10/14/17 08:20 Dose: 600 mg Dextrose (Dextrose 50%) 0 ml IV UD PRN PRN Reason: Hypoglycemia Diagnostic Test (Pha) (Accu-Chek) 1 each FS ACHS [facility] Last Admin: 10/14/17 11:45 Dose: 1 each Enoxaparin Sodium (Lovenox) 40 mg SQ DAILY [facility] Last Admin: 10/14/17 08:20 Dose: 40 mg Glucose (Insta-Glucose) 15 gm PO PRN PRN PRN Reason: Hypoglycemia Sodium Chloride (Sodium Chloride 0.9%) 1,000 mls @ 100 mls/hr IV .Q10H [facility] Last Admin: 10/13/17 23:51 Dose: Not Given Piperacillin Sod/Tazobactam (Sod 3.375 gm/ Dextrose) 50 mls @ 100 mls/hr IV Q6H [facility] Last Infusion: 10/14/17 06:06 Dose: Infused Magnesium Sulfate (Magnesium Sulfate) 2 gm in 50 mls @ 50 mls/hr IV ONCE [facility] Last Infusion: 10/14/17 09:21 Dose: Infused Sodium Chloride (Sodium Chloride 0.9%) 1,000 mls @ 100 mls/hr IV .Q10H [facility] Last Admin: 10/14/17 07:57 Dose: 100 mls/hr Ciprofloxacin (Cipro) 400 mg in 200 mls @ 200 mls/hr IV Q12H [facility] Last Infusion: 10/14/17 11:54 Dose: Infused Ibuprofen (Motrin) 400 mg PO Q4HP PRN PRN Reason: Fever Insulin Glargine (Lantus) 45 unit SQ HS [facility] Last Admin: 10/13/17 21:59 Dose: Not Given Insulin Human Lispro (Humalog) 0 unit SQ ACHS [facility] PRN Reason: Protocol Last Admin: 10/14/17 12:04 Dose: 6 unit Metoprolol Tartrate (Lopressor) 25 mg PO DAILY [facility] Last Admin: 10/14/17 08:20 Dose: 25 mg Morphine Sulfate (Morphine) 2 mg IV Q2HP PRN PRN Reason: Pain Last Admin: 10/13/17 21:14 Dose: 2 mg Ondansetron HCl (Zofran Odt) 4 mg SL Q4HP PRN PRN Reason: Nausea And Vomiting Pantoprazole Sodium (Protonix) 40 mg PO QAMAC [facility] Last Admin: 10/14/17 07:24 Dose: 40 mg Risperidone (Risperdal) 1 mg PO HS [facility] Last Admin: 10/13/17 22:02 Dose: 1 mg Sodium Chloride (Saline Flush) 10 ml IV Q8 [facility] Last Admin: 10/14/17 05:36 Dose: 10 ml - Impressions CT of the chest abdomen and pelvis, images reviewed with radiologist. Davidson hepatis masses/lymphadenopathy persist No dilatation of the biliary system No left lower lobe infiltrate Ascites present Medical - PN: A/P - Time Spent With Patient Total time spent is greater than 50% in coordination of care (as documented) at patient's floor/unit and/or counseling patient: Greater than 35 minutes (1) Sepsis Status: Acute Current Visit: Yes (2) Pneumonia Status: Acute Current Visit: Yes (3) Acute renal failure Status: Acute Current Visit: Yes (4) Type 2 diabetes mellitus Status: Acute Current Visit: Yes (5) Hypertension Status: Acute Current Visit: Yes (6) Abnormal liver enzymes Status: Acute Current Visit: Yes - Narrative A/P Narrative: 77-year-old male presents diagnosed carcinoma no primary, presents with malaise , mild disorientation confusion, found to have elevated lactate, leukocytosis, tachypnea, left lower lobe infiltrate consistent with sepsis from pneumonia. Subsequent gram-negative bacteremia, concern for cholangitis versus urinary source. Sepsis, severe sepsis with lactate 6.8. Initially source was thought to be pulmonary, CT shows no pneumonia. Gram-negative bacteremia of possible urinary source. Cholangitis is also possible. Lactate is now normalized. Tachypnea has resolved. Initial molecular probe shows Enterobacter species. Plan: Continue Zosyn, add ciprofloxacin for double coverage Pneumonia. This diagnosis is been ruled out, not present on CT. Gram-negative bacteremia. Concern for cholangitis versus urinary source. He had total bilirubin 1.6 on 10/10, now 6.4, up to 6.9 today. Discussed with GI, we'll continue to treat medically, without definitive evidence of ductal dilatation, ERCP not indicated as he is starting to improve. MRCP cannot be obtained due to pacemaker. Plan: Zosyn plus ciprofloxacin, follow up final culture. Follow up urine culture. Trend liver enzymes. Ascites noted on CT. Had minimal ascites on other imaging. He is 5+ liters long in fluid resuscitation. This may represent third spacing due to sepsis. Abdomen is nontender. Plan: Monitor, if continues to improve may need no further intervention. If white count worsens or develops abdominal pain, may need paracentesis. Acute renal failure. Baseline creatinine 1.0, now 1.5. Suspect sepsis is the source of his renal failure. Improved. Plan: Continue to trend creatinine with fluid resuscitation. Hypertension. For now patient's maintaining adequate blood pressure. Plan: Will not reorder antihypertensives until sepsis has cleared or blood pressure became significantly elevated. Type 2 diabetes mellitus, insulin requiring. Plan: Changed 70/30 to Lantus, also on sliding scale insulin, controlled carbohydrate diet. Abnormal liver enzymes with history of metastatic carcinoma in the davidson hepatis. New CT does not show definitive mass, has davidson hepatis masses. No dilatation of biliary system. As discussed above, total bilirubin 1.6 on 10/10, now 6.9. Concern for ascending cholangitis. Discussed with GI, will continue to manage medically. Plan: As above. Medical - PN: Qual - VTE Deep Vein Thrombosis/Pulmonary Embolism Present on Admission: No
[2017-10-14] MEDS: ERTAPENEM 1 GM in 0.9 % SODIUM CHLORIDE 50 ML IV SCH (13:49)
--- NOTE | 2017-10-14 14:54 | Cat Scan Report ---
CLINICAL INFORMATION: Gram-negative bacteremia. Recent biopsy nabeel hepatis lymph nodes revealing malignant adenopathy COMPARISON: Abdomen and pelvic CT 09/11/2017. No prior chest CTs TECHNIQUE: Positive enteric contrast was utilized. 80 cc of Isovue-300 were injected intravenously, and 50 seconds later 2.5 mm helical slices were obtained from the lung apices through the subtrochanteric regions of the femurs. Following reconstruction, 2.5 mm sagittal, coronal and axial reformatted images were processed and reviewed at multiple windows and levels. 7 mm MIP reconstructions were obtained through the lungs to optimize nodule detection.The exam was performed using radiation dose optimization techniques including, but not limited to, automated exposure control, adjustment of the mA and/or kV according to patient size and use of iterative reconstruction technique. FINDINGS: Pulmonary parenchymal windows show new small bilateral pleural effusions and subsegmental atelectasis in both posterior lower lobes. No rasta infiltrates. The mediastinal windows show the heart to be mildly enlarged. Pacemaker, electrodes and lead wires are in satisfactory position. Pulmonary arteries are normal caliber and show no evidence of embolus. Thoracic aorta is normal in contour and caliber. There is no adenopathy in the mediastinal, hilar or axillary regions. Thyroid is unremarkable. Images through the abdomen show massive adenopathy in the nabeel hepatus, periduodenal and peripancreatic region with lymph nodes ranging up to 5 cm. One of the anterior lymph nodes within the biopsy site - no complication from that procedure is evident. The lymph nodes markedly compress the common bile duct resulting in moderate dilatation of the intrahepatic and common hepatic ducts. The liver is otherwise unremarkable. Gallbladder is surgically absent. The pancreas, spleen, abdominal aorta and left adrenal gland are normal. 13 mm adenoma is noted in the anterior limb of the right adrenal gland. Scattered cysts are again seen on both kidneys ranging up to 6.4 cm posterior left kidney. There are small nonobstructing stones in the upper collecting systems of both kidneys: 4.4 mm nonobstructing stone in the left renal pelvis, 3 mm stone inferior calyx the left kidney and 2 mm stone inferior calyx the right kidney. No CT evidence of renal abscess. Moderate ascites in the deep true pelvis, perisplenic and perihepatic regions has increased considerably since the abdomen and pelvic CT approximately one month ago. The stomach, small and large bowel are unremarkable. Images through the pelvis show the urinary bladder, prostate seminal vesicles are normal. A 2.8 cm lytic lesion in the anterior right acetabulum has eroded through the cortex and likely represent metastases. No other potential osseous metastases are evident. IMPRESSION: 1. Multiple markedly enlarged lymph nodes in the nabeel hepatis, peripancreatic and periduodenal regions. The lymph nodes extrinsically compress the common bile duct resulting in moderate dilatation of intrahepatic and common hepatic ducts. Patient may benefit from referral for ERCP and stenting. It is understood the bilirubin is markedly elevated. Improved biliary drainage would also be beneficial if ascending cholangitis due to a gram-negative organism is the cause of sepsis Nonobstructing stones in both kidneys ranging up to 4 mm in the left renal pelvis. No evidence of renal abscess. Moderate ascites increasing considerably since the CT one month prior. Bacterial peritonitis is possible Small bilateral pleural effusions and subsegmental atelectasis both posterior lower lobes also new from previous study. 3 cm lytic lesion in the right anterior acetabulum increasing in size from prior CT and now eroding the overlying cortex. It is suspicious for metastases. metastases. Interpreted and Authenticated by: Thomas Silva 10/14/17
[2017-10-14] MEDS: IBUPROFEN 200 MG TABLET PO PRN (16:17)
[2017-10-14] MEDS: risperiDONE 1 MG TABLET PO SCH (21:22)
[2017-10-14] MEDS: INSULIN GLARGINE, HUMAN 1 UNIT/0.01 ML SQ SCH (21:23)
[2017-10-15] MEDS: 0.9 % SODIUM CHLORIDE 1,000 ML IV SCH ×2 (04:48→06:41)
[2017-10-15 05:09] LABS: Mean Cell Volume 91.7 fL (80.0-100.0); Mean Corpuscular HGB Conc 33.2 g/dL (31.0-36.0); Mean Corpuscular Hemoglobin 30.4 pg (26.0-34.0); Platelet Count 137 K/mcL (140-440); RBC 3.16 M/mcL (4.50-5.90); Red Cell Distribution Width 17.7 % (11.5-14.5)
[2017-10-15 05:14] LABS: ALT/SGPT 42 U/l (0-40); Albumin 2.3 gm/dL (3.2-5.2); Albumin/Globulin Ratio 0.6 (1.0-2.3); Alkaline Phosphatase 342 U/L (39-117); Bilirubin,Direct 5.5 mg/dL (0.0-0.3); Blood Urea Nitrogen 28 mg/dl (8-23); Gamma Glutamyl Transpeptidase 225 U/L (8-61); Uric Acid 2.4 mg/dL (2.5-8.0)
[2017-10-15 06:26] LABS: Anisocytosis 1+ (NONE SEEN); Band Neutrophils % 3 % (0-10); Basophils % (Manual) 1 % (0-2); Eosinophils % (Manual) 1 % (0-7); Lymphocytes % 11 % (15-49); Monocytes % (Manual) 12 % (1-12); Platelet Estimate DECREASED (NORMAL); RBC Morphology ABNORM (NORMAL); Segmented Neutrophils % 72 % (38-78); Toxic Granulation 1+ (NONE SEEN)
[2017-10-15] MEDS: 0.9 % SODIUM CHLORIDE 10 ML SYRINGE IV SCH (06:42)
[2017-10-15] MEDS: ENOXAPARIN 40 MG/0.4 ML SYRINGE SQ SCH (08:00)
[2017-10-15] MEDS: METOPROLOL TARTRATE 25 MG TABLET PO SCH (08:32)
[2017-10-15] MEDS: IBUPROFEN 200 MG TABLET PO PRN (08:32)
[2017-10-15] MEDS: INSULIN LISPRO 1 UNIT/0.01 ML UNIT SQ SCH (08:32)
[2017-10-15] MEDS: PANTOPRAZOLE 40 MG TABLET PO SCH (08:32)
[2017-10-15] MEDS: ALLOPURINOL 300 MG TABLET PO SCH (08:33)
[2017-10-15] MEDS: ERTAPENEM 1 GM in 0.9 % SODIUM CHLORIDE 50 ML IV SCH (09:30)
[2017-10-15] MEDS: MAGNESIUM SULFATE 2 GM/50 ML BAG IV SCH (09:30)
[2017-10-15] MEDS: CIPROFLOXACIN 400 MG/200 ML BAG IV SCH (09:30)
--- NOTE | 2017-10-15 10:52 | Transfer Summary ---
Transfer Discharge Sum: Prov Patient information: Note initiated : 10/15/17 at 10:47 am Service Date, if different from initiated Date: [] Patient: Barrett Campos 77 y/o M admitted on 10/13/17 for Altered LOC, Weakness/ Sepsis, Pneumonia. Chief Complaint: [] Date of admission: 10/13/17 14:00 Discharge Date: 10/15/17 Primary care physician: Cary Wells Consults: 10/13/17 11:57 Consult to Physician [CONS] Stat Comment: Consulting Provider: Barbara Sebastian Reason For Exam: Physician to Consult Transfer Discharge Sum: Diag - Discharge Diagnosis (1) Acute cholangitis Status: Acute Transfer Discharge Sum: Med - Medications Active and Home Medications: Home Medications Allopurinol [Zyloprim] 600 mg PO DAILY 04/11/15 [History Confirmed 10/13/17] Enalapril [Vasotec] 40 mg PO BID 04/11/15 [History Confirmed 10/13/17] Potassium Chloride [Kdur] 10 meq PO [facility] 07/20/15 [History Confirmed 10/13/17] Insulin 70/30, Human [Novolin 70/30] 65 unit SQ BIDAC 09/26/15 [History Confirmed 10/13/17] Aspirin [[place] Aspirin] 81 mg PO DAILY 06/03/17 [History Confirmed 10/13/17 ] Furosemide [Lasix] 20 mg PO DAILY 06/03/17 [History Confirmed 10/13/17] Metoprolol Tartrate [Lopressor] 25 mg PO DAILY 06/03/17 [History Confirmed 10/13] amLODIPine [Norvasc] 5 mg PO HS 06/03/17 [History Confirmed 10/13/17] Blood-Glucose Meter [Relion All-in-One] 1 each BIDAC 10/13/17 [History Confirmed 10/13/17] risperiDONE [Risperidone] 1 tab PO HS 10/13/17 [History Confirmed 10/13/17] Active Medications Allopurinol (Zylopriim) 600 mg PO DAILY [facility] Last Admin: 10/15/17 08:33 Dose: 600 mg Dextrose (Dextrose 50%) 0 ml IV UD PRN PRN Reason: Hypoglycemia Diagnostic Test (Pha) (Accu-Chek) 1 each FS ACHS [facility] Last Admin: 10/15/17 07:30 Dose: 1 each Enoxaparin Sodium (Lovenox) 40 mg SQ DAILY [facility] Last Admin: 10/15/17 08:00 Dose: 40 mg Glucose (Insta-Glucose) 15 gm PO PRN PRN PRN Reason: Hypoglycemia Magnesium Sulfate (Magnesium Sulfate) 2 gm in 50 mls @ 50 mls/hr IV ONCE [facility] Last Admin: 10/15/17 09:30 Dose: Not Given Sodium Chloride (Sodium Chloride 0.9%) 1,000 mls @ 100 mls/hr IV .Q10H [facility] Last Admin: 10/15/17 06:41 Dose: 100 mls/hr Ciprofloxacin (Cipro) 400 mg in 200 mls @ 200 mls/hr IV Q12H [facility] Last Admin: 10/15/17 09:30 Dose: 200 mls/hr Ertapenem 1 gm/ Sodium (Chloride) 50 mls @ 100 mls/hr IV DAILY [facility] Last Admin: 10/15/17 09:30 Dose: 100 mls/hr Ibuprofen (Motrin) 400 mg PO Q4HP PRN PRN Reason: Fever Last Admin: 10/15/17 08:32 Dose: 400 mg Insulin Glargine (Lantus) 45 unit SQ HS [facility] Last Admin: 10/14/17 21:23 Dose: 45 unit Insulin Human Lispro (Humalog) 0 unit SQ ACHS [facility] PRN Reason: Protocol Last Admin: 10/15/17 08:32 Dose: 2 unit Metoprolol Tartrate (Lopressor) 25 mg PO DAILY [facility] Last Admin: 10/15/17 08:32 Dose: 25 mg Morphine Sulfate (Morphine) 2 mg IV Q2HP PRN PRN Reason: Pain Last Admin: 10/13/17 21:14 Dose: 2 mg Ondansetron HCl (Zofran Odt) 4 mg SL Q4HP PRN PRN Reason: Nausea And Vomiting Pantoprazole Sodium (Protonix) 40 mg PO QAMAC [facility] Last Admin: 10/15/17 08:32 Dose: 40 mg Risperidone (Risperdal) 1 mg PO HS [facility] Last Admin: 10/14/17 21:22 Dose: 1 mg Sodium Chloride (Saline Flush) 10 ml IV Q8 [facility] Last Admin: 10/15/17 06:42 Dose: Not Given Transfer Discharge Sum: Hosp Hospital course: Transfer diagnosis 77-year-old male presents diagnosed carcinoma with questionable primary, presents with malaise, mild disorientation confusion and acute cholangitis with bacteremia * Acute cholangitis in the setting of biliary obstruction from malignant lymphadenopathy. patient will require biliary decompression due to rising bilirubin. Case discussed with GI at [facility]. Patient will be transferred to tertiary Center for further management in consultation with GI/oncology. On broad antibiotic coverage. * Klebsiella bacteremia secondary to cholangitis-on Rocephin per sensitivities. * Severe sepsis clinically improving white count down from 15,000-5000. Stable hemodynamics.lactic acid down from 6.8-1 * large ascites likely malignant. May require paracentesis is tender abdomen/ signs of SBP * Acute renal failure. creatinine improving to 1.3. Secondary to sepsis end organ dysfunction. * Type 2 diabetes mellitus, on basal prandial insulin Brief hospital course 10/13 The patient is a 77-year-old male with history of coronary artery disease, hyperlipidemia, hypertension, recently diagnosed carcinoma of unknown primary who presents with weakness and confusion. History is obtained in speaking with the patient, the patient's as well as some limited old records are obtained from [facility]. Patient was in his usual state of health up until just today. His noted he did not "seem himself", was a bit disoriented. She checked his blood glucose which was not low. She also noted that he been incontinent of urine over the night. Ottoman to shower, she had to assist him into the shower, he had to sit during the shower because of weakness, which are new findings for him. He has of these ongoing symptoms, she brings in the ED for evaluation. Patient has been coughing for about the last 2 weeks. Apparently was on a course of amoxicillin for sinus problems, the patient denies any sinus congestion, states he was just coughing. Occasionally is having some phlegm that he would swallow. Cough may have gotten worse in the last few days. His notes he may have been more short of breath last few days, and last evening they noted he had chills including chattering of his teeth. His temperature at arrival was 99.6. This morning also had some lateral left abdominal pain, 4-5/10 in intensity, resolved after ibuprofen. No associated nausea or vomiting, no diarrhea. No sore throat, no sinus congestion, no face pressure, no rhinorrhea. No myalgias or body aches. He has noted some changes in his bowel habits last few months, he has been constipated, when he used to be fairly regular. Patient was in this emergency department in early August for kidney stone, was noted to have an elevated bilirubin in the 3 range, as well as elevated transaminases and alkaline phosphatase. Subsequent CT of the abdomen at [facility] revealed masses in the nabeel hepatis, felt to be lymph nodes. He subsequently underwent needle biopsy on September 23. That was confirmed his cancer his states, but type is unknown. He's been seen by an oncologist in [place]. The next step of the workup was to do a CT of the head, and a PET scan and to consider an endoscopy. The CT reports initially were concerning for portal vein thrombosis, though in subsequent CT there is no evidence of portal vein thrombosis with a contrast study. No mention of any hepatic masses , only some early nodular contours of the liver concerning for early cirrhosis. In the emergency department, he was to, had a white count of 13,000, low-grade fever 99.8 and an elevated lactate at 6.8. Chest radiograph shows some vague left lower lobe infiltrate, he's been admitted for sepsis from presumed pulmonary source. 10/14 The patient feels a bit better this morning. Still kind of fatigued. No abdominal pain. No nausea or vomiting. Dyspnea seems to be improved. Further history is obtained, oncology notes from Dr. Sanches, at [facility] saw the patient on 10/10. 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 Significant labs from that visit included an alpha- fetoprotein of 16,378 and CA 199 of182. On 419 his total bilirubin is 1.6, ALT 20, AST 57, alkaline phosphatase 395. This morning his bilirubin has increased to 6.9, though his transaminases have decreased mildly. Overnight his blood cultures are positive for 2 bottles of gram-negative rods, initial molecular probe report is Enterobacter species. Given these findings, biliary or GI source is of concern. Patient also has pyuria and bacteriuria, UTI may be a source as well. CT of the abdomen and pelvis as well as chest is obtained. There are nabeel hepatis masses, no dilation of the biliary duct, no evidence of abscess at the biopsy site or elsewhere. There is some free ascites. Images were reviewed and the case discussed with Dr. Scott. I discussed the case with Dr. Hopkins, on-call for gastroenterology. At this time without definitive evidence of ductal dilatation, recommend continuing with broad antibiotic coverage and follow, rather than proceeding with ERCP at this point. Incidentally, the CT of chest showed now masses and no pneumonia. 24- bilirubin uptrending at 7 with direct fraction 5.5. White count down to 5000. Klebsiella on cultures pansensitive. lactic acid normalized. Antibiotic De escalated to Rocephin from ertapenem. hemodynamics stable. CT abdomen reveals extensive lymphadenopathy/ascites/metastatic lesion at acetabulum. Case discussed with patient and and subsequently was discussed with patient 's oncologist Dr. Sanches at [facility]. Oncologist recommends transfer to tertiary Center. Case was subsequently discussed with Center [place] auto electrician is Dr. Alaniz and hospitalist Dr. Gutierrez. I highly appreciate their help in further management of this complex elderly with metastatic cancer/cholangitis - Time Spent with Patient Total time spent providing and/or coordinating transfer services: Greater than 30 minutes Transfer Discharge Sum: Exam - Constitutional Vitals: Vital Signs Temp Pulse Pulse Resp BP BP Pulse Ox 10/15/17 07:49 66 26 H 123/64 94 10/15/17 04:22 98.9 F 24 H 126/66 95 10/15/17 00:21 98.4 F 28 H 109/54 94 10/14/17 20:25 99.1 F H 63 22 119/57 94 10/14/17 16:00 99.2 F H 73 18 134/63 94 10/14/17 11:39 99.2 F H 75 20 113/61 96 Intake and Output 10/14/17 10/15/17 10/15/17 21:59 05:59 13:59 Intake Total 1308.0909 / 1308.0909 800 / 800 1000 / 1000 Output Total 251 / 251 200 / 200 Balance 1057.0909 / 1057.0909 799 / 799 800 / 800 Intake: IV 558.0909 / 558.0909 200 / 200 1000 / 1000 Sodium Chloride 0.9% 1,000 ml @ 498 / 498 1000 / 1000 100 mls/hr IV .Q10H [facility] Rx#: [id number] INVanz 1 GM In Sodium Chloride 50 / 50 0.9% 50 ml @ 100 mls/hr IV DAILY [facility] Rx#:[id number] Oral 750 / 750 GI Tube Flush 600 / 600 Output: Void Amount 250 / 250 200 / 200 Urine/Stool Mix Other: Meal Dinner Percent of Meal Consumed 100% Feeding Ability Assist with Tray Set Up Stool Size Moderate Small Stool Color Tommy Colored Stool Consistency Soft # Voids 1 # Bowel Movements 1 Weight 334 lb Transfer Discharge Sum: Data Procedures and tests throughout hospitalization: Transfer Discharge Sum: A/P - Problem Maintenance (1) Acute cholangitis Status: Acute - Plan Functional capacity at transfer: bed bound Overall status at transfer: patient is not back to baseline Disposition: Xfer [facility] Quality Measure Queries - VTE Deep Vein Thrombosis/Pulmonary Embolism Present on Admission: No
== END 2017-10-15 11:20 | disposition short-term general hospital (02) | DRG 871 ==
LOC: ED 09:25 → ICU 14:00
PROVIDERS: ADMIT Internal Medicine; ATTEND Internal Medicine